=== PATIENT | male | born 1980 | race Caucasian/White ===

== ENCOUNTER 2019-09-13 21:52 | Emergency (ER) | payer OTHER ==
--- NOTE | 2019-09-13 22:02 | PHYS DOC ---
Adult General Chief Complaint Chief Complaint: ".. At least three weeks... I ve had pain in my Lt testicular area.... I tried to call for urology follow-up and a total me I had to see by primary care first... I'll have her primary care's I went to urgent care clinic... 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 No history of STDs. No history of penile discharge. No history of trauma. No history immunosuppression. Has had episodes of left sclera inflammatory problem that required steroids 2. Patient denies any travel., Immunosuppression or specific ill contacts. Has had only one lifetime sexual partner. Current sexual partner () has no pelvic complaints. Review of Systems Review of Systems Constitutional: Denies fever or chills [] Eyes: Denies change in visual acuity, redness, or eye pain [] HENT: Denies nasal congestion or sore throat [] Respiratory: Denies cough or shortness of breath [] Cardiovascular: No additional information not addressed in HPI [] GI: Denies abdominal pain, nausea, vomiting, bloody stools or diarrhea [] : Denies dysuria or hematuria [. The]patient complaints of left testicular and epididymis pain Musculoskeletal: Denies back pain or joint pain [] Integument: Denies rash or skin lesions [] Neurologic: Denies headache, focal weakness or sensory changes [] Endocrine: Denies polyuria or polydipsia [] All other systems were reviewed and found to be within normal limits, except as documented in this note. Family History Family History Noncontributory Current Medications Current Medications See nursing for home meds Allergies Allergies No known drug allergies Physical Exam Physical Exam Constitutional: Well developed, well nourished, no acute distress, non-toxic appearance. [] HENT: Normocephalic, atraumatic, bilateral external ears normal, oropharynx moist, no oral exudates, nose normal. [] Eyes: PERRLA, EOMI, conjunctiva normal, no discharge. [] Neck: Normal range of motion, no tenderness, supple, no stridor. [] Cardiovascular:Heart rate regular rhythm, no murmur [] Lungs & Thorax: Bilateral breath sounds clear to auscultation [] Abdomen: Bowel sounds normal, soft, no tenderness, no masses, no pulsatile masses. [] No appreciable hernias. Tenderness of left testicle, very mild tenderness of left epididymis. Circumcised male. No penile discharge. Skin: Warm, dry, no erythema, no rash. [] Back: No tenderness, no CVA tenderness. [] Extremities: No tenderness, no cyanosis, no clubbing, ROM intact, no edema. [] Neurologic: Alert and oriented X 3, normal motor function, normal sensory function, no focal deficits noted. [] Psychologic: Affect normal, judgement normal, mood normal. [] EKG EKG [] Radiology/Procedures Radiology/Procedures [][place] [address] IMAGING REPORT Signed PATIENT: RENATO CHAVEZ V ACCOUNT: [id number] : 1980 LOCATION: ER AGE: 39 SEX: M EXAM STATUS: REG ER ORD. PHYSICIAN: COMFORT TRISTAN MD REASON: Lt. testical scrotal pain- PROCEDURE: TESTICULAR/SCROTUM History: Left testicular pain for one week. Realtime ultrasonography of the scrotum was performed. Comparison: None. The bilateral testicles demonstrate homogeneous parenchyma without evidence of mass, cyst, calcification, or increased Doppler flow. Left epididymis is slightly larger than the right, with no hypervascularity. The right testicle measures 3.9 x 3.0 x 2.0 cm. The left testicle measures 4.3 x 2.3 x 2.2 cm. No hydrocele is seen. Few mildly prominent vessels along the inferior aspect of the left testicle, not meeting criteria for varicocele. Impression: No evidence of testicular torsion. No mass or hydrocele. Few mildly prominent vessels along the inferior aspect of the left testicle, not meeting criteria for varicocele. Electronically signed by: Sally Reyez MD (09/14/2019 12:36 AM) [facility] DICTATED AND SIGNED BY: SALLY REYEZ MD DATE: 09/14/19 0036 CC: COMFORT TRISTAN MD; PCP,NO ~ Course & Med Decision Making Course & Med Decision Making Pertinent Labs and Imaging studies reviewed. (See chart for details) Patient take Bactrim DS twice a day. Patient follow-up urology. Patient return if any concerns. Patient issued a disc disease ultrasound. Pt. referred to Dr.B villa Rodriguez [phone] or urologist of choice. Followup any urinary cultures. Safe sex. Impression: 1. Left testicular and epididymis discomfort/pain [] Dragon Disclaimer Dragon Disclaimer This electronic medical record was generated, in whole or in part, using a voice recognition dictation system. Departure Departure: Disposition: HOME/RESIDENCE PRIOR TO ADM Condition: STABLE Scripts Sulfamethoxazole/Trimethoprim (BACTRIM DS TABLET) 1 Each Tablet 1 TAB PO BID for testicular pain for 10 Days, #20 TAB 0 Refills Prov: COMFORT TRISTAN MD 09/14/19 Yves Disclaimer This chart was dictated in whole or in part using Voice Recognition software in a busy, high-work load, and often noisy Emergency Department environment. It may contain unintended and wholly unrecognized errors or omissions. COMFORT TRISTAN MD Sep 13, 2019 22:02
[2019-09-13 23:11] LABS: BILIRUBIN,URINE NEG (NEG); CLARITY,URINE CLEAR; COLOR,URINE YELLOW; GLUCOSE,URINE NEG (NEG); NITRITE,URINE NEG (NEG); UROBILINOGEN,URINE 0.2 mg/dL (0.2 mg/dL)
[2019-09-13 23:12] LABS: BACTERIA,URINE 0 /HPF (0-FEW); RBC,URINE 0 /HPF (0-2); SQUAMOUS EPITHELIAL CELL,UR OCC /LPF; WBC,URINE OCC /HPF (0-4)
[2019-09-14] MEDS ORDERED: SMZ/TMP 800/160MG TABLET. PO ONE (00:30)
[2019-09-14] MEDS ORDERED: SULF1TAB24 PO (00:33)
--- NOTE | 2019-09-14 00:39 | RAD ---
History: Left testicular pain for one week. Realtime ultrasonography of the scrotum was performed. Comparison: None. The bilateral testicles demonstrate homogeneous parenchyma without evidence of mass, cyst, calcification, or increased Doppler flow. Left epididymis is slightly larger than the right, with no hypervascularity. The right testicle measures 3.9 x 3.0 x 2.0 cm. The left testicle measures 4.3 x 2.3 x 2.2 cm. No hydrocele is seen. Few mildly prominent vessels along the inferior aspect of the left testicle, not meeting criteria for varicocele. Impression: No evidence of testicular torsion. No mass or hydrocele. Few mildly prominent vessels along the inferior aspect of the left testicle, not meeting criteria for varicocele. Electronically signed by: Micky Reyez MD (09/14/2019 12:36 AM) [facility]
[2019-09-14 01:04] VITALS: BP 148/96
== END 2019-09-14 01:06 | disposition home or self-care (01) ==
LOC: ER 21:52
DX: N50.812 Left testicular pain (principal); N45.1 Epididymitis
CPT/HCPCS: 36415; 76870; 81001; 87491; 87591; 99285

== ENCOUNTER → 2020-03-02 | Outpatient (CLI) | payer OTHER ==
[~2020-03-02] MED LIST: SULF1TAB24 PO
[2020-03-02 14:17] LABS: BASO # 0.1 x10^3/uL (0.0-0.2); BASO % 1 % (0-3); EOS # 0.2 x10^3/uL (0.0-0.7); EOS % 3 % (0-3); HEMATOCRIT 43.8 % (39.0-53.0); HEMOGLOBIN 14.4 g/dL (13.0-17.5); LYMPH # 0.8 x10^3/uL (1.0-4.8); LYMPH % 15 % (24-48); MEAN CORPUSCULAR HEMOGLOBIN 29 pg (25-35); MEAN CORPUSCULAR HGB CONC 33 g/dL (31-37); MEAN CORPUSCULAR VOLUME 89 fL (79-100); MONO # 0.2 x10^3/uL (0.0-1.1); MONO % 4 % (0-9); NEUT # 4.3 x10^3uL (1.8-7.7); NEUT % 76 % (31-73); PLATELET COUNT 202 x10^3/uL (140-400); RED BLOOD COUNT 4.92 x10^6/uL (4.30-5.70); RED CELL DISTRIBUTION WIDTH 13.4 % (11.5-14.5); WHITE BLOOD COUNT 5.6 x10^3/uL (4.0-11.0)
== END | disposition home or self-care (01) ==
LOC: LAB 12:33
PROVIDERS: ATTEND Ophthalmology
DX: H15.099 Other scleritis, unspecified eye (principal); R58 Hemorrhage, not elsewhere classified
CPT/HCPCS: 36415; 85025; 85610; 85730; 86140

== ENCOUNTER 2021-01-25 11:11 | Emergency (ER) | payer OTHER ==
[~2021-01-25] VITALS: Ht 190.5 cm; Wt 105.0 kg
--- NOTE | 2021-01-25 11:50 | PHYS DOC ---
Past History Past Medical History: No Pertinent History Past Surgical History: Other Alcohol Use: None Drug Use: None Adult General Chief Complaint Chief Complaint: TESTICULAR PAIN OR INJURY [facility] HPI Patient is a 40-year-old male who presents to the emergency department complaining of pubic pain groin pain and bilateral testicular pain after a fall yesterday. 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 Patient states he woke up with considerable pain and went to urgent care for evaluation, patient states urgent care provider was concerned of testicular torsion and sent him to the emergency department for evaluation. Patient reports a 4/10 on a 1-10 pain scale. Reports burning and seeing possible blood in his urine. Denies ejaculation pain however denies having sex or ejaculation since injury. Patient denies any numbness or tingling to his groin area. Patient denies any other physical complaints or physical concerns. Review of Systems Review of Systems 14 body systems of review of systems have been reviewed. See HPI for pertinent positives and negative responses, otherwise all other systems are negative, nonpertinent or noncontributory. Allergies Allergies Allergies Coded Allergies Type Severity Reaction Last Updated Verified No Known Drug Allergies 09/13/19 No Physical Exam Physical Exam Constitutional: Well developed, well nourished, no acute distress, non-toxic appearance. HENT: Normocephalic, atraumatic, bilateral external ears normal, oropharynx moist, no oral exudates, nose normal. Eyes: PERRLA, EOMI, conjunctiva normal, no discharge. Neck: Normal range of motion, no tenderness, supple, no stridor. Cardiovascular:Heart rate regular rhythm, no murmur Lungs & Thorax: Bilateral breath sounds clear to auscultation Abdomen: Bowel sounds normal, soft, no tenderness, no masses, no pulsatile masses. Skin: Warm, dry, no erythema, no rash. Back: No tenderness, no CVA tenderness. Extremities: No tenderness, no cyanosis, no clubbing, ROM intact, no edema. Neurologic: Alert and oriented X 3, normal motor function, normal sensory function, no focal deficits noted. Psychologic: Affect normal, judgement normal, mood normal. : Genital examination revealed no rashes no lesions no bruising of the penis or scrotal sac. Patient is circumcised. No swelling appreciated of the scrotal sac or penis. Positive cremasteric reflex. Pain to palpation of bilateral testes and epididymides. Patient has mild ecchymotic area just right of pubic bone. Pain to palpation along pubis area and adjacent structures. Current Patient Data Vital Signs Vital Signs Date Time Temp Pulse Resp B/P (MAP) Pulse Ox O2 Delivery O2 Flow Rate FiO2 01/25/21 11:18 98.4 65 12 163/79 (107) 100 Room Air EKG EKG [] Radiology/Procedures Radiology/Procedures [] Heart Score C/O Chest Pain: No Risk Factors: Risk Factors: DM, Current or recent (<one month) smoker, HTN, HLP, family history of CAD, obesity. Risk Scores: Risk Factors: DM, Current or recent (<one month) smoker, HTN, HLP, family history of CAD, obesity. Course & Med Decision Making Course & Med Decision Making Pertinent Labs and Imaging studies reviewed. (See chart for details) 40-year-old male, vital signs reviewed, presents to the emergency department concerning testicular pain after blunt injury yesterday while at work. Physical examination concerning for testicular trauma, pelvis trauma. Offered pain medication for 4/10 1-10 pain scale, patient refused pain medication at this time. Discussed with patient will order CT of pelvis to rule out bony injury or other internal pelvic injury, will also order testicular sonogram to rule out testicular injury or scrotal injury. Patient amenable to this plan. Will order saline lock, CBC, BMP. Patient's labs are unremarkable, patient's urine was not infected did not have any blood in urine. CT pelvis did not show any bony abnormality or trauma, did however report hydroureter on left and right, the patient has no CVA tenderness, no abdominal pain, no back pain, no blood in his urine, this is most likely a normal variant. Sonogram of testicles negative for torsion or acute abnormality. Discussed findings with patient, symptoms most likely from contusion. Patient states he feels better knowing that he did not have any internal injuries or broken bones. Patient states he is ready to go home. Patient continues to deny need for pain medications. Patient gave verbal understanding of discharge home instructions, follow-up with primary care, return to ER precautions or concerns, had no further questions or concerns and was discharged home without incident. Dragon Disclaimer Dragon Disclaimer This electronic medical record was generated, in whole or in part, using a voice recognition dictation system. Departure Departure: Impression: Primary Impression: Contusion of pelvis Additional Impression: Contusion of scrotum and testes, initial encounter Disposition: HOME / SELF CARE / HOMELESS Condition: GOOD Referrals: SHANITA AGOSTO APRN (PCP) Patient Instructions: Contusion Additional Instructions: You are seen today in the emergency department after a blunt injury to your pelvis and scrotal area. A CT of your pelvis with contrast was performed, there were no signs of internal injury or broken bones or concerning signs that would require immediate intervention or admission to the hospital, a sonogram of your scrotum was performed, there were no signs of testicular torsion or concerning signs that would require immediate intervention or admission to the hospital. As we discussed your symptoms are most likely from a contusion, or "bruising ". Please use umch-fak-ovmjcga ibuprofen or Tylenol for pain and discomfort. You may use ice packs 30 minutes on 30 minutes off to the sore areas for the next 24 hours while awake. Please follow-up with your primary care physician as needed, return to the emergency department for worsening symptoms or other concerns. EMERGENCY DEPARTMENT GENERAL DISCHARGE INSTRUCTIONS Thank you for coming to [facility] (ED) today and trusting us with you care. We trust that you had a positivie experience in our Emergency Department. If you wish to speak to the department management, you may call the director at [phone]. YOUR FOLLOW UP INSTRUCTIONS ARE FOLLOWS: 1. Do you have a private Doctor? If you do not have a private doctor, please ask for a resource list of physicians or clinics that may be able to assist you with follow up care. 2. The Emergency Physician has interpreted your x-rays. The X-Ray specialist will also review them. If there is a change in the findings, you will be notified in 48 hours when at all possible. 3. A lab test or culture has been done, your results will be reviewed and you will be notified if you need a change in treatment. ADDITIONAL INSTRUCTIONS AND INFORMATION: 1. Your care today has been supervised by a physician who is specially trained in emergency care. Many problems require more than one evaluation for a complete diagnosis and treatment. We recommend that you schedule your follow up appointment as recommended to ensure complete treatment of you illness or injury. If you are unable to obtain follow up care and continue to have a problem, or if your condition worsens, we recommend that you return to the ED. 2. We are not able to safely determine your condition over the phone nor are we able to give sound medical advice over the phone. For these safety reasons, if you call for medical advice we will ask you to come to the ED for further evaluation. 3. If you have any questions regarding these discharge instructions please call the ED at [phone]. SAFETY INFORMATION: In the interest of safety, wellness, and injury prevention; we encourage you to wear your sealbelt, if you smoke; quite smoking, and we encourage family to use a protective helmet for bicycling and other sporting events that present an increased risk for head injury. IF YOUR SYMPTOMS WORSEN OR NEW SYMPTOMS DEVELOP, OR YOU HAVE CONCERNS ABOUT YOUR CONDITION; OR IF YOUR CONDITION WORSENS WHILE YOU ARE WAITING FOR YOUR FOLLOW UP APPOINTMENT; EITHER CONTACT YOUR PRIMARY CARE DOCTOR, THE PHYSICIAN WHOSE NAME AND NUMBER YOU WERE GIVEN, OR RETURN TO THE ED IMMEDIATELY. Problem Qualifiers Primary Impression: Contusion of pelvis Encounter type: initial encounter Qualified Codes: S30.0XXA - Contusion of lower back and pelvis, initial encounter GINETTE OG APRN Jan 25, 2021 11:50
[2021-01-25] MEDS ORDERED: IOHEXOL 300 MG/ML 75 ML VIAL. IV ONE (12:00)
[2021-01-25] MEDS ORDERED: CONTRAST GIVEN. MC PRN (12:00)
[2021-01-25 12:18] LABS: BILIRUBIN,URINE NEG (NEG); CLARITY,URINE CLEAR; COLOR,URINE YELLOW; GLUCOSE,URINE NEG (NEG); NITRITE,URINE NEG (NEG); UROBILINOGEN,URINE 0.2 mg/dL (0.2 mg/dL)
[2021-01-25 12:20] LABS: BACTERIA,URINE 0 /HPF (0-FEW); RBC,URINE 0 /HPF (0-2); SQUAMOUS EPITHELIAL CELL,UR OCC /LPF; WBC,URINE 0 /HPF (0-4)
[2021-01-25 12:30] LABS: CALCIUM 8.5 mg/dL (8.5-10.1); CREATININE 1.1 mg/dL (0.7-1.3); GFR 73.4; POTASSIUM 3.7 mmol/L (3.5-5.1)
--- NOTE | 2021-01-25 12:30 | RAD ---
EXAM: Scrotal sonogram. HISTORY: Trauma. TECHNIQUE: Gaytan scale and color Doppler sonographic imaging of the scrotum with spectral waveform kadeem lysis was performed. COMPARISON: None. FINDINGS: The testes are normal in size and demonstrate normal symmetric blood flow. No focal testicu lar parenchymal lesion is seen. The epididymides are unremarkable. There is no varicocele. There are small bilateral hydroceles. There is no hernia. IMPRESSION: 1. Small bilateral hydroceles. 2. Unremarkable testes and epididymides. Electronically signed by: Diana Damian MD (01/25/2021 12:28 PM) [id number]
--- NOTE | 2021-01-25 13:04 | RAD ---
EXAM: Pelvis CT with intravenous contrast. HISTORY: Trauma. TECHNIQUE: Computed tomographic images of the pelvis were obtained with intravenous contrast. *One or more of the following individualized dose reduction techniques were utilized for this examina tion: 1. Automated exposure control. 2. Adjustment of the mA and/or kV according to patient size. 3. Use of iterative reconstruction technique. COMPARISON: None. FINDINGS: No displaced fracture is seen. There is no hip dislocation or subluxation. There is minimal marginal acetabular spurring and minimal subchondral sclerosis involving the sacroiliac joints. 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 At L4-L5, there is a disc bulge and endplate remodeling. There is an inferior endplate Schmorl's node . There is no stenosis. At L5-S1, there is a disc bulge and endplate remodeling. There is disc space narrowing. There is mode rate right and mild left foraminal stenosis. There is no evidence of bowel obstruction or abnormal bowel wall thickening. The urinary bladder is u nremarkable. There are dilated mid and distal left greater than right ureters likely due to peristals is. The kidneys are excluded from the [id number]. The prostate and seminal vesicles are unremarkab le. There is no hernia. There is no lymphadenopathy. IMPRESSION: 1. No evidence of acute pelvic trauma. 2. Degenerative change involving the lower lumbar spine, resulting in foraminal stenosis at L5-S1. Th ere is also minimal degenerative change involving the sacroiliac joints and both hips. 3. Mild left greater than right hydroureter. This may be due to peristalsis or rapid patient bolus hy dration. The kidneys are excluded from the [id number]. Electronically signed by: Diana Damian MD (01/25/2021 1:02 PM) [id number]
[2021-01-25 13:31] VITALS: BP 145/69
[2021-01-25 13:48] LABS: BASO # 0.1 x10^3/uL (0.0-0.2); BASO % 1 % (0-3); EOS # 0.4 x10^3/uL (0.0-0.7); EOS % 7 % (0-3); HEMATOCRIT 41.3 % (39.0-53.0); HEMOGLOBIN 13.9 g/dL (13.0-17.5); LYMPH # 1.6 x10^3/uL (1.0-4.8); LYMPH % 33 % (24-48); MEAN CORPUSCULAR HEMOGLOBIN 30 pg (25-35); MEAN CORPUSCULAR HGB CONC 34 g/dL (31-37); MEAN CORPUSCULAR VOLUME 89 fL (79-100); MONO # 0.4 x10^3/uL (0.0-1.1); MONO % 8 % (0-9); NEUT # 2.5 x10^3uL (1.8-7.7); NEUT % 51 % (31-73); PLATELET COUNT 190 x10^3/uL (140-400); RED BLOOD COUNT 4.66 x10^6/uL (4.30-5.70); RED CELL DISTRIBUTION WIDTH 13.5 % (11.5-14.5); WHITE BLOOD COUNT 4.9 x10^3/uL (4.0-11.0)
== END 2021-01-25 13:31 | disposition home or self-care (01) ==
LOC: ER 11:11
DX: S30.0XXA Contusion of lower back and pelvis, initial encounter (principal); S30.22XA Contusion of scrotum and testes, initial encounter; W01.0XXA Fall on same level from slipping, tripping and stumbling without subsequent striking against object, initial encounter; Y93.89 Activity, other specified; Y92.89 Other specified places as the place of occurrence of the external cause; Y99.8 Other external cause status
CPT/HCPCS: 36415; 72193; 76870; 80048; 81001; 85025; 99285; Q9967

== ENCOUNTER 2021-05-20 23:20 | Emergency (ER) | payer OTHER ==
[~2021-05-20] VITALS: Ht 190.5 cm; Wt 105.0 kg
[2021-05-21] MEDS ORDERED: IV NORMAL SALINE 1,000ML 1,000 ML IV ONE (00:15)
--- NOTE | 2021-05-21 00:23 | RAD ---
XR CHEST 1V Clinical Indication: Reason: covid, COUGH / Spl. Instructions: / History: Comparison: None. Findings: The cardiomediastinal silhouette is normal. There are moderate patchy airspace opacities of the bilat eral mid to lower lungs. There is no pneumothorax. No pleural effusion is appreciated. No acute bone abnormality. IMPRESSION: Moderate patchy airspace opacities at the bilateral mid to lower lungs compatible with the provided h istory of Covid pneumonia. Electronically signed by: Den Hartman MD (05/21/2021 12:21 AM) [facility]
[2021-05-21 00:34] LABS: BASO % 1 % (0-3); EOS # 0.3 x10^3/uL (0.0-0.7); EOS % 4 % (0-3); HEMATOCRIT 39.7 % (39.0-53.0); HEMOGLOBIN 13.4 g/dL (13.0-17.5); LYMPH # 1.7 x10^3/uL (1.0-4.8); LYMPH % 24 % (24-48); MEAN CORPUSCULAR HEMOGLOBIN 29 pg (25-35); MEAN CORPUSCULAR HGB CONC 34 g/dL (31-37); MEAN CORPUSCULAR VOLUME 87 fL (79-100); MONO # 0.8 x10^3/uL (0.0-1.1); MONO % 12 % (0-9); NEUT # 4.1 x10^3uL (1.8-7.7); NEUT % 59 % (31-73); PLATELET COUNT 158 x10^3/uL (140-400); RED BLOOD COUNT 4.55 x10^6/uL (4.30-5.70); RED CELL DISTRIBUTION WIDTH 13.4 % (11.5-14.5)
--- NOTE | 2021-05-21 00:38 | PHYS DOC ---
Past History Past Medical History: No Pertinent History Past Surgical History: No Surgical History Alcohol Use: None Drug Use: None General Adult EDM: Chief Complaint: SHORTNESS OF BREATH HPI: HPI: 41-year-old male presents the emergency room with shortness of breath. The patient was diagnosed with COVID-19 16 days ago. He thinks he should feel better by now. Patient has not had a fever for the last 3 days. He is taken a round of steroids and azithromycin. He was feeling better yesterday but was feeling worse today. After arriving in the emergency room he was feeling a bit better again. He just does not understand why he is not over it yet. Patient was not vaccinated. Review of Systems: Review of Systems: Constitutional: Denies fever or chills Eyes: Denies change in visual acuity HENT: Denies nasal congestion or sore throat Respiratory: Intermittent cough with shortness of breath Cardiovascular: Denies chest pain or edema GI: Denies abdominal pain, nausea, vomiting, bloody stools or diarrhea : Denies dysuria Musculoskeletal: Denies back pain or joint pain Integument: Denies rash Neurologic: Headache. Denies focal weakness or sensory changes Endocrine: Denies polyuria or polydipsia Lymphatic: Denies swollen glands Psychiatric: Denies depression or anxiety Current Medications: Current Meds: Current Medications Medications (Trade) Dose Ordered Sig/Josh Start Time Stop Time Status Last Admin Dose Admin Sodium Chloride 1,000 ml @ 1,000 mls/hr 1X ONCE 05/21/21 00:15 05/21/21 01:14 Allergies: Allergies: Allergies Coded Allergies Type Severity Reaction Last Updated Verified No Known Drug Allergies 09/13/19 No Physical Exam: PE: Constitutional: Well developed, well nourished, no acute distress, non-toxic appearance. [] HENT: Normocephalic, atraumatic, bilateral external ears normal, oropharynx moist, no oral exudates, nose normal. [] Eyes: PERRLA, EOMI, conjunctiva normal, no discharge. [] Neck: Normal range of motion, no tenderness, supple, no stridor. [] Cardiovascular:Heart rate regular rhythm, no murmur [] Lungs & Thorax: Bilateral breath sounds clear to auscultation [] Abdomen: Bowel sounds normal, soft, no tenderness, no masses, no pulsatile masses. [] Skin: Warm, dry, no erythema, no rash. [] Back: No tenderness, no CVA tenderness. [] Extremities: No tenderness, no cyanosis, no clubbing, ROM intact, no edema. [] Neurologic: Alert and oriented X 3, normal motor function, normal sensory function, no focal deficits noted. [] Psychologic: Affect normal, judgement normal, mood normal. [] Current Patient Data: Vital Signs: Vital Signs Date Time Temp Pulse Resp B/P (MAP) Pulse Ox O2 Delivery O2 Flow Rate FiO2 05/20/21 23:53 97.6 82 18 122/71 96 Room Air EKG: EKG: [] Radiology/Procedures: Radiology/Procedures: [] Impressions: XR CHEST 1V Clinical Indication: Reason: covid, COUGH / Spl. Instructions: / History: Comparison: None. Findings: The cardiomediastinal silhouette is normal. There are moderate patchy airspace opacities of the bilateral mid to lower lungs. There is no pneumothorax. No pleural effusion is appreciated. No acute bone abnormality. IMPRESSION: Moderate patchy airspace opacities at the bilateral mid to lower lungs compatible with the provided history of Covid pneumonia. Electronically signed by: Den Fernandes MD (05/21/2021 12:21 AM) [facility] DICTATED AND SIGNED BY: DEN FERNANDES MD DATE: 05/21/2118 CC: FELICITY LINCOLN DO; SHANITA AGOSTO APRN ~MTH0 0 Heart Score: C/O Chest Pain: N/A Risk Factors: Risk Factors: DM, Current or recent (<one month) smoker, HTN, HLP, family history of CAD, obesity. Risk Scores: Score 0 - 3: 2.5% MACE over next 6 weeks - Discharge Home Score 4 - 6: 20.3% MACE over next 6 weeks - Admit for Clinical Observation Score 7 - 10: 72.7% MACE over next 6 weeks - Early Invasive Strategies Course & Med Decision Making: Course & Med Decision Making Pertinent Labs and Imaging studies reviewed. (See chart for details) The patient's chest x-ray showed bilateral pneumonia, consistent with COVID-19. He just finished a round of azithromycin and does not have a fever at this time. I do not believe further antibiotics are necessary. He just finished his steroids, his increase in symptoms could be rebound effect from ending the steroids. His labs are unremarkable. He is stable for discharge at this time. Have advised him that his Covid symptoms could last a few more weeks. [] Yves Disclaimer: Yves Disclaimer: This electronic medical record was generated, in whole or in part, using a voice recognition dictation system. Departure Departure: Impression: Primary Impression: COVID-19 Disposition: HOME / SELF CARE / HOMELESS Condition: STABLE Referrals: SHANITA AGOSTO APRN (PCP) Additional Instructions: You have been tested for or diagnosed with COVID-19. It is an infection caused by a new type of coronavirus. COVID-19 will cause cold-like or mild flu symptoms in most. It can cause more severe symptoms like problems breathing in some. There is no treatment for COVID-19. The body will clear the infection over time. Self-care will help to ease discomfort. Steps to Take: Self-Care Rest as needed. Healthy habits may help you feel better. Steps include: Choose healthy foods including fruits and vegetables. Drink water throughout the day. Get plenty of sleep each night. If you smoke, try to quit. It may ease breathing. Avoid alcohol. Keep Others Healthy The virus can spread to others. Droplets are released every time you sneeze or cough. The droplets can get into the mouth, nose, or eyes of people near you and lead to infection. To lower the chances of spreading COVID-19 to others: Stay at home until your doctor has said it is safe to leave. If you tested positive this will mean staying isolated until both of the following are true: At least 7 days have passed since the start of illness. You are free of fever for at least 72 hours without the use of medicine. During this time: - Avoid public areas, events, or transportation. Do not return to work or school until your doctor has said it is safe to do so. - Call ahead if you need to go to a medical center. Let them know you may have COVID-19. It will help them guide you where to go. They may also ask you to wear a facemask when you come to the office. - If you call for emergency medical services, let them know you may have COVID- 19. While at home: - Try to avoid close contact with others. Stay about 6 feet away. - If possible, spend most of your time in a separate room from others. - Use a face mask if you will be in close contact with others such as sharing a room or vehicle. - Have someone wipe down common surfaces in the home. Use household um nurse every day on areas like doorknobs, counters, or sinks. - Cough or sneeze into a tissue. Throw the tissue away right after use. If a tissue is not available, cough or sneeze into your elbow. - Wash your hands often. Wash them after sneezing or coughing. Use soap and water and wash for at least 20 seconds. Alcohol based hand gut cleaner can be used if soap and water is not available. - Do not prepare food for others. Avoid sharing personal items like forks, spoons, or toothbrushes. - Avoid close contact with pets while you are sick. There is no evidence of the virus passing to pets. This is a safety step until more is known about this virus. Isolation can be frustrating. Social interaction can help. Keep in touch with friends and family through phone and tech options. You can still interact with others in your home, just keep a safe distance of about 6 feet. Follow-up: Your doctors office will check in with you to see if there are any changes in y our health. You may be asked to keep track of symptoms to share with them. They will also let you know when you are clear to be in public again. Problems to Look Out For: Contact your doctor if your recovery is not going as you expect. Get emergency care if you have problems such as: - Trouble breathing - Nonstop chest pain or pressure - Changes in awareness, confusion, or problems waking - Lips or face have bluish color - Worsening of symptoms If you think you have an emergency, call for emergency medical services right away. As taken from [facility] FELICITY LINCOLN DO May 21, 2021 00:38
[2021-05-21 00:41] LABS: CALCIUM 8.1 mg/dL (8.5-10.1); CREATININE 0.9 mg/dL (0.7-1.3); GFR 92.1; POTASSIUM 3.8 mmol/L (3.5-5.1)
[2021-05-21] MEDS ORDERED: NAPROXEN 500 MG TABLET PO ONE (00:45)
[2021-05-21 00:47] LABS: ALBUMIN 2.7 g/dL (3.4-5.0); ALBUMIN/GLOBULIN RATIO 0.7 (1.0-1.7); TOTAL BILIRUBIN 0.4 mg/dL (0.2-1.0); TOTAL PROTEIN 6.5 g/dL (6.4-8.2)
[2021-05-21 01:00] VITALS: BP 123/76
== END 2021-05-21 01:05 | disposition home or self-care (01) ==
LOC: ER 23:20
DX: U07.1 COVID-19 (principal); R06.02 Shortness of breath
CPT/HCPCS: 36415; 71045; 80053; 85025; 96360; 99284; J7030

== ENCOUNTER 2021-05-21 13:29 | Observation (INO) | payer OTHER ==
[~2021-05-21] VITALS: Ht 190.5 cm; Wt 105.0 kg
--- NOTE | 2021-05-21 13:54 | PHYS DOC ---
Past History Past Medical History: No Pertinent History (KAVON POON APRN) Past Surgical History: No Surgical History (KAVON POON APRN) Alcohol Use: None Drug Use: None (KAVON POON APRN) General Adult EDM: Chief Complaint: OTHER COMPLAINTS HPI: HPI: Patient is a 41-year-old male being seen in the ER for hemoptysis. Patient was seen in the ER yesterday and diagnosed with Covid pneumonia. He has been taking steroids and azithromycin. He reported that today he coughed up dark blood. Patient denies any lightheadedness. Patient's vital signs are stable, nonlabored, no acute distress. (KAVON POON APRN) Review of Systems: Review of Systems: 14 body systems of the review of systems have been reviewed. See HPI for pertinent positive and negative responses, otherwise all other systems are negative, nonpertinent or noncontributory (KAVON POON APRN) Allergies: Allergies: Allergies Coded Allergies Type Severity Reaction Last Updated Verified No Known Drug Allergies 09/13/19 No (KAVON POON APRN) Physical Exam: PE: Constitutional: Well developed, well nourished, no acute distress, non-toxic appearance. [] HENT: Normocephalic, atraumatic, bilateral external ears normal, oropharynx moist, no oral exudates, nose normal. [] Eyes: PERRL, EOMI, conjunctiva normal, no discharge. [] Neck: Normal range of motion, no stridor Cardiovascular:Heart rate regular rhythm, no murmur [] Lungs & Thorax: Bilateral breath sounds clear to auscultation [] Abdomen: Bowel sounds normal, soft, no tenderness, no masses, no pulsatile masses. [] Skin: Warm, dry, no erythema, no rash. [] Back: Normal range of motion Extremities: No tenderness, no cyanosis, no clubbing, ROM intact, no edema. [] Neurologic: Alert and oriented X 3, normal motor function, normal sensory function, no focal deficits noted. [] Psychologic: Affect normal, judgement normal, mood normal. [] (KAVON POON APRN) Current Patient Data: Labs: Laboratory Tests Test 05/21/21 14:15 05/21/21 15:13 05/21/21 15:36 White Blood Count 6.7 x10^3/uL Red Blood Count 4.61 x10^6/uL Hemoglobin 13.5 g/dL Hematocrit 40.1 % Mean Corpuscular Volume 87 fL Mean Corpuscular Hemoglobin 29 pg Mean Corpuscular Hemoglobin Concent 34 g/dL Red Cell Distribution Width 13.1 % Platelet Count 168 x10^3/uL Neutrophils (%) (Auto) 66 % Lymphocytes (%) (Auto) 18 % Monocytes (%) (Auto) 11 % Eosinophils (%) (Auto) 4 % Basophils (%) (Auto) 0 % Neutrophils # (Auto) 4.4 x10^3uL Lymphocytes # (Auto) 1.2 x10^3/uL Monocytes # (Auto) 0.7 x10^3/uL Eosinophils # (Auto) 0.3 x10^3/uL Basophils # (Auto) 0.0 x10^3/uL Sodium Level 140 mmol/L Potassium Level 4.1 mmol/L Chloride Level 105 mmol/L Carbon Dioxide Level 29 mmol/L Anion Gap 6 Blood Urea Nitrogen 12 mg/dL Creatinine 0.8 mg/dL Estimated GFR (Cockcroft-Gault) 105.5 BUN/Creatinine Ratio 15 Glucose Level 91 mg/dL Calcium Level 8.1 mg/dL Total Bilirubin 0.6 mg/dL Aspartate Amino Transf (AST/SGOT) 24 U/L Alanine Aminotransferase (ALT/SGPT) 47 U/L Alkaline Phosphatase 70 U/L Troponin I Quantitative < 0.017 ng/mL Total Protein 6.5 g/dL Albumin 2.7 g/dL Albumin/Globulin Ratio 0.7 [id number]-Uyu-M-Type Natriuretic Peptide 66 pg/mL Prothrombin Time 10.4 SEC Prothromb Time International Ratio 1.0 Activated Partial Thromboplast Time 22 SEC Current Medications Medications (Trade) Dose Ordered Sig/Josh Route PRN Reason Start Time Stop Time Status Last Admin Dose Admin Iohexol (Omnipaque 350 Mg/ml) 100 ml 1X ONCE IV 05/21/21 14:00 05/21/21 14:01 DC 05/21/21 14:36 Info (Do NOT chart on this entry -- for MONITORING) 1 each PRN DAILY PRN MC SEE COMMENTS 05/21/21 14:00 05/23/21 13:59 Enoxaparin Sodium (Lovenox 100mg Syringe) 100 mg 1X ONCE SQ 05/21/21 17:15 8/24/21 17:16 UNV Vital Signs: Vital Signs Date Time Temp Pulse Resp B/P (MAP) Pulse Ox O2 Delivery O2 Flow Rate FiO2 05/21/21 13:41 98.6 71 16 133/77 97 (KAVON POON APRN) EKG: EKG: EKG performed at 1359 shows sinus rhythm, no STEMI. Read by Dr. Dunn at 1406. [] (KAVON POON APRN) Radiology/Procedures: Radiology/Procedures: PROCEDURE: CT ANGIOGRAPHY CHEST CTA OF THE CHEST WITH AND WITHOUT CONTRAST Clinical indications: Hemoptysis. Positive Covid. Technique: Noncontrast axial localizer was performed. After IV infusion of 95 cc of Omnipaque 350, helical CT scanning of the chest was performed using the CTA pulmonary embolism protocol. Coronal and sagittal MIP reconstructions were generated. PQRS compliance Statement One or more of the following individualized dose reduction techniques were utilized for this study: 1. Automated exposure control 2. Adjustment of the mA and/or kV according to patient size 3. Use of iterative reconstruction technique Comparison: No previous chest CT available. Findings: There is a pulmonary embolism involving the secondary branch and tertiary branches of the posterior basal segment of the right lower lobe. There are pulmonary emboli involving the primary branch and secondary and tertiary branches of the lingula of the left upper lobe. Larger pulmonary embolism is seen involving the primary branch of the left lower lobe extending into the secondary branches and tertiary branches of the basal segments of the left lower lobe. No saddle embolism is seen within the main pulmonary trunk. No right ventricular strain is evident. The heart size is normal and no pericardial effusion is seen. No focal aneurysmal dilatation or dissection of the thoracic aorta is seen. There is reactive mediastinal and bilateral hilar lymphadenopathy. Largest lymph node is seen within the aortic pulmonary window measuring 18 mm. No pleural effusion or pneumothorax is seen. Prominent confluent nodular groundglass lung infiltrates are seen within both lower lobes. Smaller peripheral groundglass nodular lung infiltrates are seen within both upper lobes and the right middle lobe. No pleural effusion or pneumothorax is seen. Proximal bronchial tree is patent. No adrenal mass is seen. Small hepatic cyst is incidentally noted. No lytic process is seen. IMPRESSION: Bilateral pulmonary emboli. No right ventricular strain. Bilateral lung infiltrates consistent with Covid 19 pneumonia with reactive lymphadenopathy. FOR INTERNAL CODING PURPOSES Critical result: Findings discussed with the ER physician at 05/21/2021 3:01 PM. RESULT CODE: (C) Electronically signed by: Katie Starr MD (05/21/2021 3:11 PM) [id number] DICTATED AND SIGNED BY: KATIE STARR MD DATE: 05/21/21 145 CC: PHOENIX GARCIA DO; KAVON POON APRN; SHANITA AGOSTO APRN ~MTH0 0 [] (KAVON POON APRN) Heart Score: C/O Chest Pain: Yes HEART Score for Chest Pain: HEART Score for Chest Pain Response (Comments) Value History Slighlty/Non-Suspicious 0 ECG Normal 0 Age < 45 0 Risk Factors No Risk Factors 0 Troponin < Normal Limit 0 Total 0 Risk Factors: Risk Factors: DM, Current or recent (<one month) smoker, HTN, HLP, family history of CAD, obesity. Risk Scores: Score 0 - 3: 2.5% MACE over next 6 weeks - Discharge Home Score 4 - 6: 20.3% MACE over next 6 weeks - Admit for Clinical Observation Score 7 - 10: 72.7% MACE over next 6 weeks - Early Invasive Strategies (KAVON POON APRN) Course & Med Decision Making: Course & Med Decision Making Patient is a 41-year-old female being seen in the ER for hemoptysis. Patient was previously diagnosed with Covid pneumonia yesterday. CBC unremarkable. Patient's BNP is 66. Negative troponin. Negative right heart strain. CT scan of chest shows bilateral pulmonary emboli and infiltrates.. His vital signs are stable. Dr. Garcia was brought in on patient's case. He spoke to Dr. Pulivy onology. Patient to be admitted at this facility and started on blood thinners. Dr. Adhikari will be admitting patient under his services. Patient updated on plan of care and is agreeable at this time. Care transferred. 1711. Pertinent Labs and Imaging studies reviewed. (See chart for details) [] (KAVON POON APRN) Course & Med Decision Making I was the Attending physician on the above date of service of this patient. This patient was evaluated, examined, treated, and dispositioned from the emergency department by the mid-level practitioner. I got involved with care and personally saw patient repeating certain aspects of history and physical exam. Given significant clot burden, I contacted pulmonology services at [facility] and reviewed case. Patient hemodynamically stable, decision made to admit with anticoagulation for at least 48 hours with plans for discharge on anticoagulants and outpatient follow-up with pulmonology when safe to do so. Electronically signed, Phoenix Garcia DO (PHOENIX GARCIA DO) Yves Disclaimer: Yves Disclaimer: This electronic medical record was generated, in whole or in part, using a voice recognition dictation system. (KAVON POON APRN) Departure Departure: Impression: Primary Impression: Pulmonary emboli Qualified Codes: I26.99 - Other pulmonary embolism without acute cor pu lmonale Additional Impression: COVID-19 Disposition: 09 ADMITTED INPATIENT Admitting Physician: Brett Adhikari (KAVON POON APRN) Admitting Physician: Lise Hartman (PHOENIX GARCIA DO) Condition: STABLE Referrals: SHANITA AGOSTO APRN (PCP) KAVON POON APRN May 21, 2021 13:54 PHOENIX GARCIA DO May 23, 2021 07:14
[2021-05-21] MEDS ORDERED: IOHEXOL 350 MG/ML 100 ML VIAL. IV ONE (14:00)
[2021-05-21] MEDS ORDERED: CONTRAST GIVEN. MC PRN (14:00)
[2021-05-21 14:38] LABS: BASO % 0 % (0-3); EOS # 0.3 x10^3/uL (0.0-0.7); EOS % 4 % (0-3); HEMATOCRIT 40.1 % (39.0-53.0); HEMOGLOBIN 13.5 g/dL (13.0-17.5); LYMPH # 1.2 x10^3/uL (1.0-4.8); LYMPH % 18 % (24-48); MEAN CORPUSCULAR HEMOGLOBIN 29 pg (25-35); MEAN CORPUSCULAR HGB CONC 34 g/dL (31-37); MEAN CORPUSCULAR VOLUME 87 fL (79-100); MONO # 0.7 x10^3/uL (0.0-1.1); MONO % 11 % (0-9); NEUT # 4.4 x10^3uL (1.8-7.7); NEUT % 66 % (31-73); PLATELET COUNT 168 x10^3/uL (140-400); RED BLOOD COUNT 4.61 x10^6/uL (4.30-5.70); RED CELL DISTRIBUTION WIDTH 13.1 % (11.5-14.5); WHITE BLOOD COUNT 6.7 x10^3/uL (4.0-11.0)
[2021-05-21 14:53] LABS: CALCIUM 8.1 mg/dL (8.5-10.1); CREATININE 0.8 mg/dL (0.7-1.3); GFR 105.5; POTASSIUM 4.1 mmol/L (3.5-5.1)
[2021-05-21 14:58] LABS: ALBUMIN 2.7 g/dL (3.4-5.0); ALBUMIN/GLOBULIN RATIO 0.7 (1.0-1.7); TOTAL BILIRUBIN 0.6 mg/dL (0.2-1.0); TOTAL PROTEIN 6.5 g/dL (6.4-8.2)
--- NOTE | 2021-05-21 15:13 | RAD ---
CTA OF THE CHEST WITH AND WITHOUT CONTRAST Clinical indications: Hemoptysis. Positive Covid. Technique: Noncontrast axial localizer was performed. After IV infusion of 95 cc of Omnipaque 350, he lical CT scanning of the chest was performed using the CTA pulmonary embolism protocol. Coronal and s agittal MIP reconstructions were generated. PQRS compliance Statement One or more of the following individualized dose reduction techniques were utilized for this study: 1. Automated exposure control 2. Adjustment of the mA and/or kV according to patient size 3. Use of iterative reconstruction technique Comparison: No previous chest CT available. Findings: There is a pulmonary embolism involving the secondary branch and tertiary branches of the p osterior basal segment of the right lower lobe. There are pulmonary emboli involving the primary bran ch and secondary and tertiary branches of the lingula of the left upper lobe. Larger pulmonary emboli sm is seen involving the primary branch of the left lower lobe extending into the secondary branches and tertiary branches of the basal segments of the left lower lobe. No saddle embolism is seen within the main pulmonary trunk. No right ventricular strain is evident. The heart size is normal and no pe ricardial effusion is seen. No focal aneurysmal dilatation or dissection of the thoracic aorta is see n. There is reactive mediastinal and bilateral hilar lymphadenopathy. Largest lymph node is seen with in the aortic pulmonary window measuring 18 mm. No pleural effusion or pneumothorax is seen. Prominen t confluent nodular groundglass lung infiltrates are seen within both lower lobes. Smaller peripheral groundglass nodular lung infiltrates are seen within both upper lobes and the right middle lobe. No pleural effusion or pneumothorax is seen. Proximal bronchial tree is patent. No adrenal mass is seen. Small hepatic cyst is incidentally noted. No lytic process is seen. IMPRESSION: Bilateral pulmonary emboli. No right ventricular strain. Bilateral lung infiltrates consistent with Covid 19 pneumonia with reactive lymphadenopathy. FOR INTERNAL CODING PURPOSES Critical result: Findings discussed with the ER physician at 05/21/2021 3:01 PM. RESULT CODE: (C) Electronically signed by: Brandan Starr MD (05/21/2021 3:11 PM) [id number]
--- NOTE | 2021-05-21 16:10 | EKG ---
[address] [address] Test Date: 2021-05-21 Test Time: 13:59:49 Pat Name: RENATO CHAVEZ Department: Room: Gender: M Front End Application Developer: ALEXANDRA : 1980 Requested By: KAVON POON Order Number: [id number] Reading MD: Measurements Intervals Powell Rate: 64 P: 45 OR: 144 QRS: 32 QRSD: 94 T: 23 QT: 406 QTc: 423 Interpretive Statements SINUS RHYTHM NORMAL ECG RI6.02 No previous ECG available for comparison
[2021-05-21] MEDS ORDERED: ENOXAPARIN ** NOTE DOSE ** SYRINGE SQ ONE (17:15)
[2021-05-21] MEDS: ACETAMINOPHEN 325 MG TABLET PO PRN (17:58)
[2021-05-21 19:27] VITALS: BP 125/74
[2021-05-21] MEDS: APIXABAN 5 MG TABLET. PO SCH (21:40)
[2021-05-21 23:00] VITALS: BP 131/86
--- NOTE | 2021-05-21 23:45 | NUR ---
Nursing Admit Note Pt arrived at shift change, complained of having a 17 day history of being Ill had been tested at [facility] for Covid 19, which is positive. Pt currently has PE's in both lungs with basilar bilat pneumonia. States he is SOA but sats are in good shape at 99%. Becomes more soa when he ambulates in the room. Called Dr. Adhikari for meds and orders, anamika ordered BID with lovenox in the am. Regular diet. Pt pleasant calm and cooperative. Explained the location of his PE's, and his pneumonia. Pt thankful for the explanation. Tylenol, pop, water, and crackers given.
[2021-05-22] MEDS: ACETAMINOPHEN 325 MG TABLET PO PRN ×3 (02:00→20:46)
[2021-05-22 05:27] VITALS: BP 126/77
[2021-05-22] MEDS: APIXABAN 5 MG TABLET. PO SCH ×2 (07:12→20:32)
[2021-05-22] MEDS: HYDROcodone/APAP 5/325MG 1 TAB TABLET PO PRN ×3 (07:42→16:36)
[2021-05-22] MEDS ORDERED: ENOXAPARIN ** NOTE DOSE ** SYRINGE SQ ONE (09:00)
[2021-05-22 10:15] VITALS: BP 125/80
[2021-05-22 14:15] VITALS: BP 128/87
--- NOTE | 2021-05-22 16:09 | HP ---
ADMIT DATE: 05/21/2021 HISTORY OF PRESENT ILLNESS: The patient is a 41-year-old male patient who was seen in the Emergency Room for hemoptysis. He was seen in the Emergency Room, was diagnosed for COVID pneumonia. He has taken steroids and azithromycin and he reported that on the day he arrived to the Emergency Room, he has coughed up dark blood. He denied any lightheadedness. When arrival, his vital signs were stable. He was extensively investigated and has lab work as well as imaging studies. Apparently, his CT angio of the chest showed that the patient has bilateral pulmonary emboli. No right ventricular strain. He has bilateral lung infiltrate consistent with COVID-19 pneumonia with reactive lymphadenopathy and was started on apixaban as well as pain medication. PAST MEDICAL HISTORY: Unremarkable. PAST SURGICAL HISTORY: Unremarkable. ALLERGIES: He has no known drug allergies. MEDICATIONS: He is completing a 6-day course of methylprednisolone and 5 days of Zithromax. FAMILY HISTORY: Noncontributory. SOCIAL HISTORY: He is . He apparently does not smoke, drink alcohol or use recreational drugs. He is a preacher. REVIEW OF SYSTEMS: As per history of present illness. PHYSICAL EXAMINATION: GENERAL: On arrival to the emergency room, he looked well and was clearly in no apparent respiratory distress. There is no pallor, jaundice, cyanosis or thyromegaly. No jugular venous distention. No limb edema. VITAL SIGNS: His heart rate was 71, blood pressure is 133/77, temperature was 98.6, respiratory rate was 16 and oxygen saturation was 97% on room air. HEAD, EYES, EARS, NOSE AND THROAT: Normocephalic, atraumatic. NECK: Supple. HEART: Showed normal first and second heart sounds, no gallop, rub or murmur. CHEST: Clear to auscultation, no crepitation or rhonchi. ABDOMEN: Distended, soft, nontender. NEUROLOGIC: He was awake, alert, responding appropriately. All cranial nerves intact. He moves extremities without difficulty. LABORATORY DATA: His lab worn on admission showed a white cell count of 6700, hemoglobin 13.5, hematocrit 40, MCV 87, platelet count of 168,000 with a normal manual differential. His chemistry showed a serum sodium 140, potassium 4.1, chloride 105, bicarbonate 29, anion gap of 6, BUN 12, creatinine 0.8. Estimated GFR was 105 mL per minute. His glucose was 91, calcium was 8.1 Total bilirubin, AST, ALT, alkaline phosphatase were normal. His total protein was 6.5, albumin was 2.7. His prothrombin time, INR and aPTT are all normal. ASSESSMENT AND PLAN: In summary, this is a 41-year-old male patient who was admitted with COVID-19 pneumonia and bilateral pulmonary emboli. He was not vaccinated and was diagnosed with COVID positive infection about 12 days ago. His symptoms started about 18 days ago. My plan is to continue with apixaban. Continue with hydrocodone/APAP. Continue with oxygen supplementation. Obviously we will follow him and see, if he remains stable, he might be able to go home. DIAZ/JIN DR: Sharif TID: [id number]
[2021-05-22] MEDS: DEXAMETHASONE SOD PHOS 10 MG/ML VIAL. PO SCH (17:44)
[2021-05-22 20:43] VITALS: BP 152/78
--- NOTE | 2021-05-22 20:45 | NUR ---
PRN Meds for pain and temp given. Pt co headache.
[2021-05-22] MEDS: oxyCODONE IR 5 MG TABLET PO PRN (20:46)
--- NOTE | 2021-05-22 22:00 | NUR ---
Pt sleeping now, has had no further complaints.
[2021-05-22 23:19] VITALS: BP 120/80
[2021-05-23] MEDS: oxyCODONE IR 5 MG TABLET PO PRN ×3 (01:30→11:29)
--- NOTE | 2021-05-23 01:30 | NUR ---
PRN med for pain given. Pt reports that headache is better now and that he has slept well. He is drinking water and tolerating it well. Some hemoptysis after coughing continues.
[2021-05-23 05:43] VITALS: BP 129/84
--- NOTE | 2021-05-23 06:32 | RAD ---
XR CHEST 1V Clinical Indication: Reason: worsening shortness of breath and fevers / Spl. Instructions: / History : Comparison: AP chest, 2 days ago. Findings: The cardiomediastinal silhouette is normal. Moderate patchy airspace opacities of the bilateral mid a nd lower lungs are worse. The left hemidiaphragm is now partially obscured. There is no pneumothorax. No pleural effusion is appreciated. No acute bone abnormality. IMPRESSION: Bilateral infiltrates are worse in the lung bases. Electronically signed by: Den Hartman MD (05/23/2021 6:30 AM) [facility]
[2021-05-23 07:04] LABS: HEMATOCRIT 39.2 % (39.0-53.0); HEMOGLOBIN 13.1 g/dL (13.0-17.5); RED BLOOD COUNT 4.52 x10^6/uL (4.30-5.70); RED CELL DISTRIBUTION WIDTH 13.4 % (11.5-14.5); WHITE BLOOD COUNT 17.5 x10^3/uL (4.0-11.0)
[2021-05-23 07:26] LABS: ALBUMIN 2.7 g/dL (3.4-5.0); ALBUMIN/GLOBULIN RATIO 0.6 (1.0-1.7); CALCIUM 8.7 mg/dL (8.5-10.1); CREATININE 0.9 mg/dL (0.7-1.3); GFR 92.1; POTASSIUM 4.2 mmol/L (3.5-5.1); TOTAL BILIRUBIN 0.7 mg/dL (0.2-1.0); TOTAL PROTEIN 7.5 g/dL (6.4-8.2)
[2021-05-23] MEDS: APIXABAN 5 MG TABLET. PO SCH (08:52)
[2021-05-23] MEDS: DEXAMETHASONE SOD PHOS 10 MG/ML VIAL. PO SCH (08:52)
[2021-05-23] MEDS: ACETAMINOPHEN 325 MG TABLET PO PRN (10:36)
[2021-05-23 11:17] VITALS: BP 136/77
[2021-05-23] MEDS ORDERED: DEXA6TAB6 PO (13:18)
[2021-05-23] MEDS ORDERED: APIX5TAB3 PO (13:18)
[2021-05-23] MEDS ORDERED: CEFD300C PO (13:18)
[2021-05-23] MEDS ORDERED: OXYC5TAB4 PO (13:23)
--- NOTE | 2021-05-23 15:50 | NUR ---
Discharge Note: RENATO CHAVEZ V 1 [facility] Discharge instructions and discharge home medications reviewed with Patient and a copy given. All questions have been answered and understanding verbalized. The following instructions and handouts were given: Discharge summary, educational handouts Discontinued lines and drains: IV discontinued with no complications. Patient discharged to home with via personal vehicle with all his belongings.
== END 2021-05-23 15:50 | disposition home or self-care (01) ==
LOC: ER 13:29 → INTOOBSV 18:59 → 1 SOUTH 18:59
PROVIDERS: ADMIT Hospitalist; ATTEND Hospitalist
DX: U07.1 COVID-19 (principal); J12.82 Pneumonia due to coronavirus disease 2019; R04.2 Hemoptysis
CPT/HCPCS: 36415; 71045; 71275; 80053; 83880; 84484; 85025; 85027; 85610; 85730; 87040; 93005; 96365; 96372; 99285; G0378; J0696; J1100; J1650; Q9967; G0379

== ENCOUNTER → 2021-05-29 | Outpatient (CLI) | payer OTHER ==
[2021-05-23 11:17] VITALS: BP 136/77
[~2021-05-29] MED LIST changes: +APIX5TAB3 PO; +CEFD300C PO; +DEXA6TAB6 PO; +OXYC5TAB4 PO
--- NOTE | 2021-05-29 12:58 | RAD ---
AP and Lateral Views of the Chest 05/29/2021 12:30 PM Indication: Infiltrate. Comparison: Chest radiograph May 23, 2021 CT angiography of the chest May 21, 2021 Findings: There is a wedge-shaped opacity in the posterior left lower lobe consistent with a pulmonar y infarct. More diffuse pulmonary infiltrates appear improved. No pneumothorax or pleural effusion is identified. Heart size is normal. Bony thorax is intact. IMPRESSION: 1. Wedge-shaped opacity in the left lower lobe consistent with a pulmonary infarct, which would be co nsistent with the lower lobe occlusive embolism seen on prior CTA 2. Interval improvement in more diffuse infiltrates in the interim Electronically signed by: Rhys Garcia MD (05/29/2021 12:55 PM) [id number]
== END ==
LOC: RAD 12:03
PROVIDERS: ATTEND Physician Assistant Medical
DX: R91.8 Other nonspecific abnormal finding of lung field (principal); R04.2 Hemoptysis
CPT/HCPCS: 71046

== ENCOUNTER → 2021-06-10 | Outpatient (CLI) | payer OTHER ==
[2021-05-23 11:17] VITALS: BP 136/77
[~2021-06-10] MED LIST changes: +IOHEXOL 350 MG/ML 100 ML VIAL. IV ONE
--- NOTE | 2021-06-10 11:19 | RAD ---
EXAM: CT ANGIOGRAPHY OF THE CHEST WITH AND WITHOUT CONTRAST. HISTORY: Pulmonary embolism, COVID-19. TECHNIQUE: Computed tomographic angiography of the chest was performed before and after the intraveno us administration of iodinated contrast. 3-D maximum intensity projections were also performed. One o r more of the following individualized dose reduction techniques were utilized for this examination: 1. Automated exposure control. 2. Adjustment of the mA and/or kV according to patient size. 3. Use of iterative reconstruction technique. COMPARISON: 05/21/2021. FINDINGS: Images of the upper abdomen reveal a 15 mm cyst in the right hepatic lobe. Bone windows rev eal no suspicious lesions. Occlusive pulmonary emboli throughout the left lower lobe persist. Perfusion is not visualized more d istally, and there is delay in venous return from the left lower lobe. Previously noted emboli within the right lower lobe and lingula have resolved. There is no aortic dissection or aneurysm. A right hilar lymph node measures 1.8 x 1.4 cm, is decreased and likely reactive. Lateral aortic node s measure up to 18 x 12 mm are stable. There is a moderate left pleural effusion. There is no pericar dial effusion. The heart is not enlarged. Consolidation in the left lower lobe is mostly peripheral and is consistent with a relatively large p ulmonary infarct in this setting. Another wedge-shaped focus of consolidation in the right lower lobe may reflect a smaller infarct. Linear opacities elsewhere in the lower lobes may reflect the sequela of previously noted infiltrates, which have significantly improved. IMPRESSION: 1. Persistent occlusive emboli throughout the left lower lobe. Other smaller emboli in the right lowe r lobe and lingula have resolved. 2. Findings consistent with a relatively large pulmonary infarct in the left lower lobe. A smaller in farct is suspected in the right lower lobe. 3. Moderate left pleural effusion. 4. Improving bilateral infiltrates consistent with multifocal pneumonia. Prominent hilar lymph nodes are likely reactive in this setting. Electronically signed by: Davis Quiros MD (06/10/2021 11:17 AM) [facility]
== END ==
LOC: CT 10:26
PROVIDERS: ATTEND Physician Assistant Medical
DX: J90 Pleural effusion, not elsewhere classified (principal); R91.8 Other nonspecific abnormal finding of lung field; I26.99 Other pulmonary embolism without acute cor pulmonale
CPT/HCPCS: 71275; Q9967